=== PATIENT | female | born 1935 | race Caucasian/White ===

== ENCOUNTER 2017-03-01 14:44 | Inpatient (IN) | payer OTHER ==
[~2017-03-01] VITALS: Ht 154.9 cm; Wt 94.0 kg
[2017-03-01 15:58] LABS: Basophils # (auto) 0.1 uL; Basophils % (auto) 0.2 % (0.0-2.0); Eosinophils # (auto) 0 uL; Hematocrit 52.1 % (36.0-46.0); Hemoglobin 16.2 g/dL (12.2-16.2); Lymphocytes # (auto) 1.2 uL; Lymphocytes % (auto) 4.9 % (10.0-50.0); Mean Corpuscular Hemoglobin 27.5 pg (28.0-32.0); Mean Corpuscular Hgb Conc. 31.1 g/dL (32.0-36.0); Mean Corpuscular Volume 88.4 fL (80.0-100.0); Monocytes % (auto) 8.2 % (0.0-12.0); Neutrophils % (auto) 86.7 % (37.0-80.0); Nucleated Red Blood Cells % 0.2 %; Platelet Count (auto) 327 10^3/uL (140-450); Red Cell Distribution Width 15.8 % (11.8-14.3); White Blood Cell 24.2 10^3/uL (4.4-10.8)
[2017-03-01 16:13] LABS: Albumin 3.9 g/dL (3.4-5.0); Alkaline Phosphatase 145 U/L (45-117); Anion Gap 15 (5-15); Aspartate Aminotransferase 151 U/L (15-37); BUN/Creatinine Ratio 23.9; Blood Urea Nitrogen 28 mg/dL (7-18); Calcium 9.6 mg/dL (8.5-10.1); Carbon Dioxide 21 mmol/L (21-32); Chloride 106 mmol/L (98-107); GFR African American 57 mL/min; GFR Non-African American 47 mL/min; Glucose 136 mg/dL (74-106); Potassium 3.6 mmol/L (3.5-5.1); Sodium 142 mmol/L (136-145); Total Protein 8.7 g/dL (6.4-8.2)
[2017-03-01 16:34] LABS: REFLEX LACTIC ACID YES OR NO YES
[2017-03-01] MEDS ORDERED: VANCOMYCIN 1GM/250ML 250 ML IV ONE (16:45)
[2017-03-01] MEDS ORDERED: cefTRIAXone 1GM/10ml IVPUSH 10 ML IV ONE (16:45)
[2017-03-01] MEDS ORDERED: ASPirin 325 MG TAB PO ONE (16:45)
[2017-03-01 17:03] LABS: Base Excess -4.6 mmol/L (-2.0-2.0); Blood 02Sat 91.9 % (96-100); Blood COHb 0.6 % (0.5-1.5); Blood MetHb 0.2 % (0.0-1.5); HCO3 18.2 mmol/L (22-26.0); MODE ROOM AIR; O2Hb 91.2 % (94.0-97.0); PCO2 28.5 mmHg (35.0-45.0); PCO2(T) 28.5 mmHg (35.0-45.0); PO2 67.2 mmHg (80.0-100.0); PO2(T) 67.2 mmHg (80.0-100.0); Sample Type Arterial; pH 7.423 (7.350-7.450)
[2017-03-01] MEDS ORDERED: SODIUM CHLORIDE 0.9% 1,000 ML IV SCH (17:11)
[2017-03-01] MEDS ORDERED: diphenhdrAMINE HCL 50 MG/1 ML VL IV ONE (17:15)
[2017-03-01] MEDS ORDERED: LOSA25TA9 PO (20:25)
[2017-03-01] MEDS ORDERED: ATE50T PO (20:25)
[2017-03-01] MEDS ORDERED: LEVO75TA6 PO (20:25)
[2017-03-01] MEDS ORDERED: CYCL7.5T15 PO (20:25)
[2017-03-01] MEDS ORDERED: GABA-497 PO (20:25)
[2017-03-01] MEDS ORDERED: KETO0.5S31 LEFTEYE (20:25)
[2017-03-01] MEDS ORDERED: ISOS30TA4 PO (20:25)
[2017-03-01] MEDS ORDERED: AML5T PO (20:25)
[2017-03-01] MEDS ORDERED: ATOR10TA52 PO (20:25)
[2017-03-01] MEDS ORDERED: FURO20TA PO (20:25)
[2017-03-01] MEDS ORDERED: CLOP75TA41 PO (20:25)
[2017-03-01] MEDS ORDERED: GLIM2TAB33 PO (20:25)
[2017-03-01] MEDS ORDERED: NITROGLYCERIN 0.4 MG SL TAB SL PRN (20:45)
[2017-03-01] MEDS ORDERED: MORPHINE SULF INJ 2 MG/ML SYRINGE 1ML IV PRN ×2 (20:45→21:30)
[2017-03-01 21:29] LABS: Urine Bilirubin Negative (Negative); Urine Blood 3+ /uL (Negative); Urine Color Yellow (Yellow); Urine Glucose TRACE mg/dL (Normal); Urine Ketone 1+ (Negative); Urine Mucus FEW (None Seen); Urine Nitrite Negative (Negative); Urine RBC <1 /hpf (0 - 4); Urine Urobilinogen Normal (Negative)
[2017-03-01] MEDS ORDERED: HYDROcodone-ACET 5/325MG TAB PO PRN (21:30)
[2017-03-01] MEDS ORDERED: TEMAZEPAM 15 MG CAP PO PRN (21:30)
[2017-03-01] MEDS ORDERED: ONDANSETRON HCL 4 MG/2 ML VIAL IV PRN (21:30)
[2017-03-01] MEDS ORDERED: ATORVASTATIN 20 MG TAB PO SCH (22:00)
[2017-03-01] MEDS: METOPROLOL TARTRATE 25 MG TAB PO SCH (22:00)
[2017-03-01] MEDS: ENOXAPARIN SOD 120 MG/0.8 ML SYRINGE SC SCH (22:21)
[2017-03-02 00:58] LABS: BUN/Creatinine Ratio 22.4; Calcium 8.9 mg/dL (8.5-10.1); Potassium 3.5 mmol/L (3.5-5.1)
[2017-03-02] MEDS ORDERED: VANCOMYCIN PER PHARMACY 0 MG IV SCH (03:00)
[2017-03-02] MEDS ORDERED: SODIUM CHLORIDE 0.9% 1,000 ML IV ONE (03:45)
[2017-03-02] MEDS ORDERED: diphenhdrAMINE HCL 50 MG/1 ML VL IV ONE ×2 (06:00→17:15)
[2017-03-02 06:25] LABS: Basophils # (auto) 0.2 uL; Basophils % (auto) 1.2 % (0.0-2.0); Eosinophils # (auto) 0.1 uL; Eosinophils % (auto) 0.9 % (0.0-7.0); Hematocrit 40.6 % (36.0-46.0); Hemoglobin 13.3 g/dL (12.2-16.2); Lymphocytes # (auto) 1.7 uL; Lymphocytes % (auto) 12.4 % (10.0-50.0); Mean Corpuscular Hemoglobin 27.5 pg (28.0-32.0); Mean Corpuscular Hgb Conc. 32.8 g/dL (32.0-36.0); Mean Corpuscular Volume 83.9 fL (80.0-100.0); Mean Platelet Volume 8.3 fL (6.9-10.8); Monocytes # (auto) 1.3 uL; Monocytes % (auto) 9.8 % (0.0-12.0); Neutrophils # (auto) 10.1 uL; Neutrophils % (auto) 75.7 % (37.0-80.0); Platelet Count (auto) 308 10^3/uL (140-450); Red Cell Distribution Width 14.9 % (11.8-14.3); White Blood Cell 13.4 10^3/uL (4.4-10.8)
[2017-03-02] MEDS ORDERED: VANCOMYCIN 1GM/250ML 250 ML IV SCH (08:00)
[2017-03-02] MEDS: PANTOPRAZOLE 40 MG TAB PO SCH (09:37)
[2017-03-02] MEDS: METOPROLOL TARTRATE 25 MG TAB PO SCH ×2 (09:37→22:19)
[2017-03-02] MEDS: ENOXAPARIN SOD 120 MG/0.8 ML SYRINGE SC SCH (09:37)
[2017-03-02] MEDS ORDERED: NTG 0.1MG/HR TOPICAL PATCH TD SCH (10:00)
[2017-03-02] MEDS ORDERED: LISINOPRIL 5 MG TAB PO SCH (10:00)
[2017-03-02] MEDS: ASPirin-EC 81 mg tab PO SCH (10:13)
[2017-03-02 10:40] LABS: INR 1.06 (0.9-1.15); Partial Thromboplastin Time 33.6 sec (22.64-33.71); Prothrombin Time 11.6 sec (9.37-12.3)
[2017-03-02] MEDS ORDERED: POTASSIUM CHL 20 Meq TABLET PO ONE (13:30)
[2017-03-02] MEDS ORDERED: SOD CHL 0.45% 1,000 ML IV SCH (13:30)
[2017-03-02] MEDS ORDERED: cloNIDine HCL 0.1 MG TAB PO PRN (13:30)
[2017-03-02] MEDS: GABAPENTIN 300 MG CAP PO SCH ×2 (14:05→22:19)
[2017-03-02] MEDS: SOD CHL 0.45% 1,000 ML IV SCH (14:19)
[2017-03-02] MEDS: LEVOTHYROXINE SODIUM 25 MCG TAB PO SCH (14:44)
[2017-03-02] MEDS: CLOPIDOGREL BISULFATE 75 MG TAB PO SCH (14:44)
[2017-03-02] MEDS: ISOSORBIDE MONONITRATE 60 MG TAB PO SCH (14:44)
[2017-03-02] MEDS: amLODIPine BESYLATE 5 MG TAB PO SCH (14:45)
[2017-03-02] MEDS ORDERED: SODIUM BICARBONATE 50ML VIAL 150 ML in D5W 5% 1,000 ML IV SCH (17:15)
[2017-03-02] MEDS: prednisoLONE ACETATE 1% OPTH SUSP 5ML LEFTEYE SCH ×2 (17:37→23:30)
[2017-03-02] MEDS: ACETAMINOPHEN 500 MG TAB PO PRN (17:46)
[2017-03-02] MEDS ORDERED: OFLOXACIN 0.3% LEFTEYE SCH (18:00)
[2017-03-02] MEDS ORDERED: KETOROLAC OPTH LEFTEYE SCH (18:00)
[2017-03-02] MEDS ORDERED: OPTH LEFTEYE SCH (18:00)
[2017-03-02] MEDS: ATORVASTATIN 20 MG TAB PO SCH (22:18)
[2017-03-02] MEDS: OFLOXACIN LEFTEYE SCH (23:30)
[2017-03-03] MEDS: SOD CHL 0.45% 1,000 ML IV SCH ×3 (02:48→22:35)
[2017-03-03 05:45] LABS: Basophils # (auto) 0.1 uL; Basophils % (auto) 0.8 % (0.0-2.0); Eosinophils # (auto) 0.3 uL; Eosinophils % (auto) 2.8 % (0.0-7.0); Hematocrit 37.1 % (36.0-46.0); Hemoglobin 12.1 g/dL (12.2-16.2); Lymphocytes # (auto) 1.6 uL; Lymphocytes % (auto) 14.4 % (10.0-50.0); Mean Corpuscular Hemoglobin 27.6 pg (28.0-32.0); Mean Corpuscular Hgb Conc. 32.5 g/dL (32.0-36.0); Mean Corpuscular Volume 84.8 fL (80.0-100.0); Mean Platelet Volume 8.2 fL (6.9-10.8); Monocytes # (auto) 1.1 uL; Monocytes % (auto) 10.2 % (0.0-12.0); Neutrophils # (auto) 7.9 uL; Neutrophils % (auto) 71.8 % (37.0-80.0); Platelet Count (auto) 288 10^3/uL (140-450); Red Cell Distribution Width 15.3 % (11.8-14.3); White Blood Cell 10.9 10^3/uL (4.4-10.8)
[2017-03-03] MEDS: OFLOXACIN LEFTEYE SCH ×4 (05:49→23:32)
[2017-03-03] MEDS: prednisoLONE ACETATE 1% OPTH SUSP 5ML LEFTEYE SCH ×4 (05:49→23:33)
[2017-03-03] MEDS: GABAPENTIN 300 MG CAP PO SCH ×3 (05:53→22:21)
[2017-03-03] MEDS: LEVOTHYROXINE SODIUM 25 MCG TAB PO SCH (05:53)
[2017-03-03 06:05] LABS: INR 0.98 (0.9-1.15); Prothrombin Time 10.7 sec (9.37-12.3)
[2017-03-03 06:26] LABS: Albumin 2.7 g/dL (3.4-5.0); Calcium 8.1 mg/dL (8.5-10.1); Magnesium 2.1 mg/dL (1.6-2.6); Potassium 3.8 mmol/L (3.5-5.1)
[2017-03-03 06:38] LABS: BUN/Creatinine Ratio 26.5; Bilirubin, Total 0.5 mg/dL (0.2-1.0)
[2017-03-03] MEDS ORDERED: diphenhdrAMINE HCL 50 MG/1 ML VL IV ONE (09:00)
[2017-03-03] MEDS: ENOXAPARIN SOD 120 MG/0.8 ML SYRINGE SC SCH (09:56)
[2017-03-03] MEDS: GLIMEPIRIDE 2 MG TAB PO SCH (09:59)
[2017-03-03] MEDS ORDERED: PATIENTS OWN MEDICATION (Atorvastatin Calcium 1 TAB) PO SCH ×2 (10:00)
[2017-03-03] MEDS ORDERED: PATIENTS OWN MEDICATION (Levothyroxine Sodium 1 TAB) PO SCH ×2 (10:00)
[2017-03-03] MEDS ORDERED: PATIENTS OWN MEDICATION (Isosorbide Mononitrate (Isosorbide Mononitrate Er) 1 TAB) PO SCH ×2 (10:00)
[2017-03-03] MEDS: ASPirin-EC 81 mg tab PO SCH (10:15)
[2017-03-03] MEDS: KETOROLAC TROMETHAMINE LEFTEYE SCH (10:15)
[2017-03-03] MEDS: ISOSORBIDE MONONITRATE 60 MG TAB PO SCH (10:15)
[2017-03-03] MEDS: PANTOPRAZOLE 40 MG TAB PO SCH (10:16)
[2017-03-03] MEDS: METOPROLOL TARTRATE 25 MG TAB PO SCH ×2 (10:16→22:25)
[2017-03-03] MEDS: CLOPIDOGREL BISULFATE 75 MG TAB PO SCH (10:16)
[2017-03-03] MEDS: amLODIPine BESYLATE 5 MG TAB PO SCH (10:16)
[2017-03-03 16:00] VITALS: BP 116/48
[2017-03-03 16:14] VITALS: BP 104/43
[2017-03-03 20:00] VITALS: BP 125/59
[2017-03-03 22:00] VITALS: BP 117/45
[2017-03-03] MEDS: ATORVASTATIN 20 MG TAB PO SCH (22:25)
[2017-03-04] VITALS (8 sets, daily range): BP systolic 95–141; BP diastolic 36–141
[2017-03-04] MEDS: GABAPENTIN 300 MG CAP PO SCH ×3 (06:25→21:36)
[2017-03-04] MEDS: prednisoLONE ACETATE 1% OPTH SUSP 5ML LEFTEYE SCH ×3 (06:26→18:00)
[2017-03-04] MEDS: OFLOXACIN LEFTEYE SCH ×3 (06:27→18:00)
[2017-03-04] MEDS: LEVOTHYROXINE SODIUM 25 MCG TAB PO SCH (06:30)
[2017-03-04 07:29] LABS: BUN/Creatinine Ratio 33.8; Calcium 8.1 mg/dL (8.5-10.1); Potassium 4.2 mmol/L (3.5-5.1)
[2017-03-04] MEDS: amLODIPine BESYLATE 5 MG TAB PO SCH (10:41)
[2017-03-04] MEDS: CLOPIDOGREL BISULFATE 75 MG TAB PO SCH (10:41)
[2017-03-04] MEDS: ENOXAPARIN SOD 120 MG/0.8 ML SYRINGE SC SCH (10:41)
[2017-03-04] MEDS: ASPirin-EC 81 mg tab PO SCH (10:41)
[2017-03-04] MEDS: PANTOPRAZOLE 40 MG TAB PO SCH (10:42)
[2017-03-04] MEDS: METOPROLOL TARTRATE 25 MG TAB PO SCH ×2 (10:42→21:37)
[2017-03-04] MEDS: SOD CHL 0.45% 1,000 ML IV SCH ×2 (10:43→18:18)
[2017-03-04] MEDS: ISOSORBIDE MONONITRATE 60 MG TAB PO SCH (10:43)
[2017-03-04] MEDS: KETOROLAC TROMETHAMINE LEFTEYE SCH (10:44)
[2017-03-04] MEDS: ACETAMINOPHEN 500 MG TAB PO PRN (11:15)
[2017-03-04] MEDS: GLIMEPIRIDE 2 MG TAB PO SCH (12:12)
[2017-03-04 13:27] LABS: INR 0.96 (0.9-1.15); Partial Thromboplastin Time 30.9 sec (22.64-33.71); Prothrombin Time 10.5 sec (9.37-12.3)
[2017-03-04] MEDS ORDERED: ONDANSETRON HCL 4 MG/2 ML VIAL ONE (14:14)
[2017-03-04] MEDS ORDERED: KETOROLAC TROMETH 30 MG/ML 1ML VIAL ONE (14:14)
[2017-03-04] MEDS ORDERED: IOHEXOL 350 MG/ML 100ML IJ ONE (14:33)
[2017-03-04] MEDS ORDERED: LIDOCAINE 2%HCL (LOCAL ANESTH.) INJ 20ML MDV ONE (14:33)
[2017-03-04] MEDS: ATORVASTATIN 20 MG TAB PO SCH (21:36)
[2017-03-05] MEDS: SOD CHL 0.45% 1,000 ML IV SCH ×2 (00:13→15:00)
[2017-03-05] MEDS: prednisoLONE ACETATE 1% OPTH SUSP 5ML LEFTEYE SCH ×3 (00:13→11:57)
[2017-03-05] MEDS: OFLOXACIN LEFTEYE SCH ×3 (00:14→11:58)
[2017-03-05 05:00] VITALS: BP 135/60
[2017-03-05] MEDS: GABAPENTIN 300 MG CAP PO SCH ×2 (06:00→14:00)
[2017-03-05] MEDS: LEVOTHYROXINE SODIUM 25 MCG TAB PO SCH (06:13)
[2017-03-05 07:21] LABS: Calcium 8.1 mg/dL (8.5-10.1); Potassium 4.1 mmol/L (3.5-5.1)
[2017-03-05 07:22] LABS: BUN/Creatinine Ratio 29.1
[2017-03-05] MEDS ORDERED: ANGIOMAX 250 MG VIAL IV ONE (07:58)
[2017-03-05] MEDS ORDERED: fentaNYL CITRATE 100 MCG/2 ML VL ONE (07:58)
[2017-03-05] MEDS ORDERED: SODIUM CHL 0.9% 100 ML ONE (07:59)
[2017-03-05] MEDS ORDERED: MIDAZOLAM HCL 1MG/1ML-2 ML VIAL ONE (07:59)
[2017-03-05] MEDS ORDERED: IODIXANOL 320MG/ML 100ML BTL IV ONE (09:01)
[2017-03-05] MEDS: METOPROLOL TARTRATE 25 MG TAB PO SCH (10:00)
[2017-03-05] MEDS: GLIMEPIRIDE 2 MG TAB PO SCH (10:00)
[2017-03-05] MEDS: ENOXAPARIN SOD 120 MG/0.8 ML SYRINGE SC SCH (11:31)
[2017-03-05] MEDS: ISOSORBIDE MONONITRATE 60 MG TAB PO SCH (11:32)
[2017-03-05] MEDS: amLODIPine BESYLATE 5 MG TAB PO SCH (11:32)
[2017-03-05] MEDS: PANTOPRAZOLE 40 MG TAB PO SCH (11:32)
[2017-03-05] MEDS: CLOPIDOGREL BISULFATE 75 MG TAB PO SCH (11:33)
[2017-03-05] MEDS: KETOROLAC TROMETHAMINE LEFTEYE SCH (11:34)
[2017-03-05] MEDS: ASPirin-EC 81 mg tab PO SCH (11:36)
[2017-03-05 12:00] VITALS: BP 138/44
[2017-03-05 13:19] VITALS: BP 138/44
[2017-03-05 13:39] VITALS: BP 138/44
[2017-03-05 14:20] VITALS: BP 138/44
== END 2017-03-05 16:15 | DRG 871 ==
LOC: ER 14:44 → TELE 14:45 → TELE-WESTW 03-03 14:53
PROVIDERS: ADMIT Nurse Practitioner Family; ATTEND Family Medicine
PROC: 4A023N8 Measurement of Cardiac Sampling and Pressure, Bilateral, Percutaneous Approach (ICD-10-PCS; principal; 2017-03-05)
PROC: B2111ZZ Fluoroscopy of Multiple Coronary Arteries using Low Osmolar Contrast (ICD-10-PCS; 2017-03-05)
PROC: B2161ZZ Fluoroscopy of Right and Left Heart using Low Osmolar Contrast (ICD-10-PCS; 2017-03-05)
PROC: B240ZZ3 Ultrasonography of Single Coronary Artery, Intravascular (ICD-10-PCS; 2017-03-05)
DX: A41.9 Sepsis, unspecified organism (principal); I21.4 Non-ST elevation (NSTEMI) myocardial infarction; G93.41 Metabolic encephalopathy; N17.9 Acute kidney failure, unspecified; E11.22 Type 2 diabetes mellitus with diabetic chronic kidney disease; N18.2 Chronic kidney disease, stage 2 (mild); I12.9 Hypertensive chronic kidney disease with stage 1 through stage 4 chronic kidney disease, or unspecified chronic kidney disease; E03.9 Hypothyroidism, unspecified; E11.21 Type 2 diabetes mellitus with diabetic nephropathy; E11.42 Type 2 diabetes mellitus with diabetic polyneuropathy; E78.5 Hyperlipidemia, unspecified; Z60.2 Problems related to living alone; I25.10 Atherosclerotic heart disease of native coronary artery without angina pectoris; I27.20 Pulmonary hypertension, unspecified; I35.0 Nonrheumatic aortic (valve) stenosis; J44.9 Chronic obstructive pulmonary disease, unspecified; Z79.899 Other long term (current) drug therapy; Z86.73 Personal history of transient ischemic attack (TIA), and cerebral infarction without residual deficits; Z79.84 Long term (current) use of oral hypoglycemic drugs; Z88.0 Allergy status to penicillin; Z88.2 Allergy status to sulfonamides
CPT/HCPCS: 36415; 36600; 51702; 70450; 71010; 73030; 73090; 73562; 74176; 80048; 80053; 80320; 81001; 82607; 82805; 82962; 83036; 83605; 83735; 84484; 85025; 85610; 85730; 87040; 87086; 92978; 93005; 93306; 93460; 93566; 96365; 96375; 99152; 99153; C1887; J1885; J2250; J2405; J7042; Q9967

== ENCOUNTER 2017-07-23 19:45 | Emergency (ER) | payer MEDICARE, OTHER ==
[~2017-07-23] VITALS: Ht 160 cm; Wt 95.3 kg
[~2017-07-23 19:45] MED LIST: AML5T PO; ATE50T PO; ATOR10TA52 PO; CLOP75TA41 PO; CYCL7.5T15 PO; FURO20TA PO; GABA300C10 PO; GLIM2TAB33 PO; ISOS30TA4 PO; KETO0.5S31 LEFTEYE; LEVO75TA6 PO; LOSA25TA9 PO
[2017-07-23 21:19] LABS: Hemoglobin 12.3 g/dL (12.2-16.2); Monocytes # (auto) 0.9 uL; Monocytes % (auto) 7.4 % (0.0-12.0)
[2017-07-23 21:20] LABS: Basophils # (auto) 0 uL; Basophils % (auto) 0.2 % (0.0-2.0); Eosinophils # (auto) 0.4 uL; Eosinophils % (auto) 3.1 % (0.0-7.0); Hematocrit 38.4 % (36.0-46.0); Lymphocytes # (auto) 1.5 uL; Mean Corpuscular Hemoglobin 26.8 pg (28.0-32.0); Mean Corpuscular Hgb Conc. 32.1 g/dL (32.0-36.0); Mean Corpuscular Volume 83.5 fL (80.0-100.0); Neutrophils # (auto) 9.1 uL; Neutrophils % (auto) 76.3 % (37.0-80.0); Platelet Count (auto) 323 10^3/uL (140-450); Red Cell Distribution Width 16.1 % (11.8-14.3); White Blood Cell 11.9 10^3/uL (4.4-10.8)
[2017-07-23 21:39] LABS: Albumin 3.5 g/dL (3.4-5.0); Calcium 8.9 mg/dL (8.5-10.1); Potassium 4.3 mmol/L (3.5-5.1)
[2017-07-23 21:43] LABS: Bilirubin, Total 0.3 mg/dL (0.2-1.0); Total Protein 7.6 g/dL (6.4-8.2)
[2017-07-24] MEDS ORDERED: HYDROcodone-ACET 10/325MG TAB PO ONE (01:45)
[2017-07-24] MEDS ORDERED: cefTRIAXone 1GM/10ml IVPUSH 10 ML IV ONE (01:45)
[2017-07-24] MEDS ORDERED: FUROSEMIDE 20 MG/2 ML VIAL IV ONE (03:00)
[2017-07-24 05:00] VITALS: BP 148/62
== END 2017-07-24 05:55 | disposition home or self-care (01) ==
LOC: ER 19:45 → EDBD 19:45 → ER 07-24 05:55
DX: S01.81XA Laceration without foreign body of other part of head, initial encounter (principal); S39.012A Strain of muscle, fascia and tendon of lower back, initial encounter; E11.9 Type 2 diabetes mellitus without complications; J44.9 Chronic obstructive pulmonary disease, unspecified; R42 Dizziness and giddiness; R53.1 Weakness; I11.0 Hypertensive heart disease with heart failure; I50.9 Heart failure, unspecified; Z86.73 Personal history of transient ischemic attack (TIA), and cerebral infarction without residual deficits; Z88.0 Allergy status to penicillin; Z88.2 Allergy status to sulfonamides; W20.8XXA Other cause of strike by thrown, projected or falling object, initial encounter; Y93.89 Activity, other specified; Y92.098 Other place in other non-institutional residence as the place of occurrence of the external cause; Y99.8 Other external cause status
CPT/HCPCS: 12011; 36415; 70450; 71250; 72125; 72131; 73030; 73600; 80053; 83880; 84484; 85025; 93005; 96374; 96375; 99285; J1940

== ENCOUNTER 2019-08-31 16:53 | Inpatient (IN) | payer MEDICARE, MEDICAID ==
[2019-08-31] VITALS (10 sets, daily range): BP systolic 121–166; BP diastolic 20–44
[~2019-08-31] VITALS: Ht 152.4 cm; Wt 89.3 kg
[~2019-08-31 16:53] MED LIST changes: +FURO1TAB33 PO; -FURO20TA PO; +LOSA25TA38 PO; -LOSA25TA9 PO
[2019-08-31] MEDS ORDERED: NITROGLYCERIN 50MG/250ML 250 ML IV ONE (17:14)
[2019-08-31] MEDS ORDERED: ASPirin 81 mg TAB PO ONE (17:15)
[2019-08-31] MEDS ORDERED: PROMETHAZINE HCL 25 MG/ML 1ML IV ONE (17:15)
[2019-08-31] MEDS ORDERED: HYDROmorphone HCL 2 MG/ML VL IV ONE (17:15)
[2019-08-31 17:20] LABS: Basophils # (auto) 0.1 10 ^3/uL (0-0.2); Basophils % (auto) 1.1 % (0.0-2.0); Eosinophils # (auto) 0.2 10 ^3/uL (0-0.8); Eosinophils % (auto) 1.4 % (0.0-7.0); Hematocrit 46.9 % (36.0-46.0); Hemoglobin 15.1 g/dL (12.2-16.2); Lymphocytes # (auto) 2.1 10 ^3/uL (0.4-5.4); Lymphocytes % (auto) 16.6 % (10.0-50.0); Mean Corpuscular Hemoglobin 27.2 pg (28.0-32.0); Mean Corpuscular Hgb Conc. 32.1 g/dL (32.0-36.0); Mean Corpuscular Volume 84.6 fL (80.0-100.0); Monocytes # (auto) 1.1 10 ^3/uL (0-1.3); Monocytes % (auto) 8.6 % (0.0-12.0); Neutrophils # (auto) 9.2 10 ^3/uL (1.6-8.6); Neutrophils % (auto) 72.3 % (37.0-80.0); Platelet Count (auto) 308 10^3/uL (140-450); Red Blood Cells 5.54 10^6/uL (4.0-5.20); Red Cell Distribution Width 14.6 % (11.8-14.3); White Blood Cell 12.8 10^3/uL (4.4-10.8)
[2019-08-31 17:37] LABS: Albumin 3.7 g/dL (3.4-5.0); Calcium 9.7 mg/dL (8.5-10.1); Potassium 4.5 mmol/L (3.5-5.1)
[2019-08-31 17:44] LABS: BUN/Creatinine Ratio 29.4; Bilirubin, Total 0.5 mg/dL (0.2-1.0); Total Protein 8.5 g/dL (6.4-8.2)
[2019-08-31] MEDS ORDERED: HEPARIN SODIUM (PORCINE) 5000 UNITS/ML 1ML VIAL ONE ×2 (18:08→18:32)
[2019-08-31] MEDS ORDERED: HEPARIN 1,000 UNITS/ml 1ML VIAL IV ONE (18:15)
[2019-08-31] MEDS ORDERED: ATROPINE SULF 1 MG/10ml SYR ONE (18:31)
[2019-08-31] MEDS ORDERED: fentaNYL CITRATE 100 MCG/2 ML VL ONE (18:32)
[2019-08-31] MEDS ORDERED: VERAPAMIL 2.5MG/ML INJ 2ML VIAL IV ONE ×2 (18:32→19:21)
[2019-08-31] MEDS ORDERED: LIDOCAINE 2%HCL (LOCAL ANESTH.) INJ 20ML MDV ONE (18:32)
[2019-08-31] MEDS ORDERED: IODIXANOL 320MG/ML 100ML BTL IV ONE (18:32)
[2019-08-31] MEDS ORDERED: MIDAZOLAM HCL 1MG/1ML-2 ML VIAL ONE (18:32)
[2019-08-31] MEDS ORDERED: SODIUM CHL 0.9% 50 ML ONE (18:33)
[2019-08-31] MEDS ORDERED: ANGIOMAX 250 MG VIAL IV ONE (18:33)
[2019-08-31] MEDS ORDERED: DOPamine 1600MCG/ML D5W 0 ML IV ONE (18:44)
[2019-08-31] MEDS ORDERED: EPINEPHrine HCL 1 MG/10 ML SYRG ONE (18:44)
[2019-08-31] MEDS ORDERED: NOREPINEPHRINE 8 MG/250ML KIT 0 ML IV ONE ×2 (18:45→20:05)
[2019-08-31] MEDS ORDERED: PHENYLEPHRINE IV 0 ML IV ONE (19:31)
[2019-08-31] MEDS ORDERED: PHENYLEPHRINE IV 250 ML IV ONE (20:07)
[2019-08-31] MEDS ORDERED: ZOLPIDEM TARTRATE 5 MG TAB PO PRN (20:15)
[2019-08-31] MEDS ORDERED: NITROGLYCERIN 0.4 MG SL TAB SL PRN (20:15)
[2019-08-31] MEDS ORDERED: ONDANSETRON HCL 4 MG/2 ML VIAL IV PRN (20:15)
--- NOTE | 2019-08-31 21:00 | NUR ---
ICU admit from Private Duty Lpn: TEDDY ARELLANO admitted to ICU after SBAR received. Patient oriented to WALDO BRIAN RN primary RN, unit, room, bed, and unit policies regarding patient care and visiting hours. Patient now on bedside monitoring,and reading on arrival to unit is SR. Patient placed on bedside oxygen, weighed by bedscale and encouraged to call if they need something. All questions and concerns addressed, patient verbalized understanding.
--- NOTE | 2019-08-31 21:45 | NUR ---
Bed ravi: Patient was placed on the bedpan d/t patient having urge to urinate. Patient voided with no complications.
[2019-08-31] MEDS: METOPROLOL TARTRATE 25 MG TAB PO SCH (21:57)
[2019-08-31] MEDS ORDERED: cloNIDine HCL 0.1 MG TAB PO PRN (22:00)
[2019-08-31] MEDS ORDERED: ATORVASTATIN 20 MG TAB PO SCH (22:00)
--- NOTE | 2019-08-31 22:00 | NUR ---
Vasc Band: Deflated 2mL's, no bleeding observed.
--- NOTE | 2019-08-31 22:15 | NUR ---
Vasc Band: Deflated 2mL's, no bleeding observed.
[2019-08-31] MEDS: ENOXAPARIN SOD 40 MG/0.4 ML SYRINGE SC SCH (22:18)
--- NOTE | 2019-08-31 22:30 | NUR ---
Vasc Band: Deflated 2mL's, no bleeding observed.
--- NOTE | 2019-08-31 22:45 | NUR ---
Vasc Band: Deflated 2mL's, no bleeding observed.
--- NOTE | 2019-08-31 23:00 | NUR ---
Vasc Band: Deflated 1mL, no bleeding observed.
--- NOTE | 2019-08-31 23:00 | NUR ---
TR BAND removed. Will continue to monitor for bleeding.
--- NOTE | 2019-08-31 23:56 | NUR ---
Dr. Palomares was paged d/t patient having a critical Troponin of 11.1. Patient recently under went a [facility] with Dr. Palomares earlier. Dr. Palomares returned page immediately and no new orders were received at this time. also made aware of patient currently being Bradycardic in the mid 40's. Per , RN is to continue to monitor.
[2019-09-01] VITALS (37 sets, daily range): BP systolic 86–187; BP diastolic 27–56
--- NOTE | 2019-09-01 03:30 | NUR ---
RN noted patient to have an abdominal abrasion under her skin fold, opti foam was placed over abrasion.
--- NOTE | 2019-09-01 03:52 | NUR ---
Bed ravi: Patient was placed on the bedpan d/t patient having urge to urinate. Patient voided with no complications.
[2019-09-01 06:02] LABS: Basophils # (auto) 0 10 ^3/uL (0-0.2); Basophils % (auto) 0.3 % (0.0-2.0); Eosinophils # (auto) 0.2 10 ^3/uL (0-0.8); Eosinophils % (auto) 1.7 % (0.0-7.0); Hematocrit 37.9 % (36.0-46.0); Hemoglobin 12.8 g/dL (12.2-16.2); Lymphocytes # (auto) 1.9 10 ^3/uL (0.4-5.4); Lymphocytes % (auto) 18.1 % (10.0-50.0); Mean Corpuscular Hemoglobin 28.5 pg (28.0-32.0); Mean Corpuscular Hgb Conc. 33.7 g/dL (32.0-36.0); Mean Corpuscular Volume 84.7 fL (80.0-100.0); Monocytes # (auto) 0.9 10 ^3/uL (0-1.3); Monocytes % (auto) 8.7 % (0.0-12.0); Neutrophils # (auto) 7.5 10 ^3/uL (1.6-8.6); Neutrophils % (auto) 71.2 % (37.0-80.0); Nucleated Red Blood Cells % 0.1 %; Platelet Count (auto) 256 10^3/uL (140-450); Red Blood Cells 4.48 10^6/uL (4.0-5.20); Red Cell Distribution Width 14.8 % (11.8-14.3); White Blood Cell 10.5 10^3/uL (4.4-10.8)
[2019-09-01 06:19] LABS: Calcium 8.5 mg/dL (8.5-10.1); Potassium 4.3 mmol/L (3.5-5.1)
[2019-09-01 06:26] LABS: BUN/Creatinine Ratio 32.7; Bilirubin, Total 0.6 mg/dL (0.2-1.0); Total Protein 6.8 g/dL (6.4-8.2)
--- NOTE | 2019-09-01 07:35 | NUR ---
INITIAL CONTACT Report received from Augusto LAZO, care assumed. Patient observed resting in bed. Patient denies chest pain or shortness of breath. Patient on 2 L nasal cannula, oxygen saturation 100% with respirations even, and unlabored. Pulses palpable, blood pressure trending 160-180's. Heart rate 50-60 sinus. Patient denies dizziness. Afebrile. See skin/wound assessment. SCD's on bilateral lower extremities. Right IJ TLC, dressing CDI. Bed locked in lowest position, alarms in place, and call light within reach. Patient instructed to call for assistance. Patient verbalized understanding. Will continue to monitor.
--- NOTE | 2019-09-01 08:44 | NUR ---
PAGED paged regarding elevated blood pressure. Awaiting call back.
--- NOTE | 2019-09-01 09:07 | NUR ---
MD RETURNED PAGE aware of elevated blood pressure with bradycardia. Notified MD of home medications. Orders received.
[2019-09-01] MEDS ORDERED: ENALAPRILAT 1.25 MG/ML-1ML VIAL IV ONE (09:15)
--- NOTE | 2019-09-01 09:30 | NUR ---
ACTIVITY Patient ambulated with standby assistance to bedside commode to void. Patient then ambulated to chair for breakfast. No distress noted. Call light within reach. Patient instructed to call for assistance.
[2019-09-01] MEDS: ENOXAPARIN SOD 40 MG/0.4 ML SYRINGE SC SCH (09:37)
[2019-09-01] MEDS: METOPROLOL TARTRATE 25 MG TAB PO SCH (09:37)
--- NOTE | 2019-09-01 09:50 | NUR ---
URINALYSIS Urine sent to lab.
--- NOTE | 2019-09-01 09:54 | NUR ---
BUNCH BREAKER MACHINE OPERATOR VISIT Burt BUNCH BREAKER MACHINE OPERATOR at bedside speaking with patient. BUNCH BREAKER MACHINE OPERATOR reviewing medical chart.
[2019-09-01] MEDS ORDERED: PANTOPRAZOLE 40 MG/10 ML VIAL INJ IV SCH (10:00)
[2019-09-01] MEDS ORDERED: FUROSEMIDE 40 MG/4 ML VIAL IV ONE (10:00)
[2019-09-01] MEDS ORDERED: ASPirin-EC 81 mg tab PO SCH (10:00)
[2019-09-01] MEDS ORDERED: amLODIPine BESYLATE 5 MG TAB PO SCH (10:00)
--- NOTE | 2019-09-01 10:18 | NUR ---
FAMILY Spoke with patient son regarding plan of care and status. Password provided.
[2019-09-01 10:23] LABS: Urine WBC None Seen /hpf (0 - 5)
[2019-09-01 10:36] LABS: Urine Bacteria NONE SEEN /hpf (None Seen); Urine Blood Negative /uL (Negative); Urine Specific Gravity 1.031 (1.001-1.035)
--- NOTE | 2019-09-01 11:37 | NUR ---
ACTIVITY Patient ambulated back to bed with standby assistance. Patient repositioned with head elevated greater than 30 degrees. Call light within reach. Will continue to monitor.
[2019-09-01] MEDS ORDERED: POTASSIUM CHL 20 Meq TABLET PO ONE (12:30)
--- NOTE | 2019-09-01 12:31 | NUR ---
CARDIOLOGY Spoke with Ariadne FLORIAN, ECHO 2D ordered. Once echo is complete, results are read. Then patient may be discharged home.
[2019-09-01] MEDS ORDERED: CLOPIDOGREL BISULFATE 75 MG TAB PO ONE (12:45)
--- NOTE | 2019-09-01 13:19 | NUR ---
ECHO pharmacy technologist at bedside
[2019-09-01] MEDS: hydrALAZINE HCL 25 MG TAB PO SCH ×2 (14:00→14:53)
--- NOTE | 2019-09-01 14:40 | NUR ---
MD VISIT at bedside speaking with patient regarding discharge and plan of care.
--- NOTE | 2019-09-01 14:50 | NUR ---
PT EVAL Physical therapist at bedside walking patient with portable monitor and walker one lap around nurses station. Patient tolerated activity well. No distress noted.
[2019-09-01] MEDS ORDERED: FURO1TAB33 PO (14:55)
[2019-09-01] MEDS ORDERED: HYDR-2691 PO (14:55)
[2019-09-01] MEDS ORDERED: POTA-220 PO (14:55)
[2019-09-01] MEDS ORDERED: ASP81EC PO (14:55)
[2019-09-01] MEDS ORDERED: AML5T PO (14:55)
--- NOTE | 2019-09-01 15:31 | NUR ---
assessment Patient is a 84 year old female who is alert and oriented. Patients cognitive abilities are intact. Prior to admission patient lived home alone and functioned independently. Patient informed me she is able to care for her own ADLs. Per patient she will return home to her prior living arrangements post discharge and family will transport her home. I informed patient of her ss consult for needing assistance with ADL's. Patient informed me she can care for her own ADL's, she needs assistance with cutting her toe nails and foot calluses. Patient informed me her PCP Dr Gresham has put in a referral for Dr Mars medical record consultant. Patient is waiting for referral now. I informed patient she has a ss consult for home safety and PT. Patient is agreeable. Karissa TERAN will satisfy order. I informed patient she has a right to speak to a transition social worker regarding all care. I informed patient she has a right to participate in any and all discharge planning. Patient does not have a POA and advanced directive. I have offered patient information on POA and advanced directives. I informed the patient the advantages and benefits of having an Advanced Directive. Patient verbalized understanding and agreed to discharge plan home. Addendum: 09/01/19 at 1536 by Radha Read Amended: Links added.
--- NOTE | 2019-09-01 15:33 | NUR ---
D/C planning Per consult for home health safety evaluation and physical therapy. Faxed clinical information to [facility]. Per Caroline with [facility] patient has been accepted and service to start within 24-48hrs upon d/c day.
--- NOTE | 2019-09-01 16:08 | NUR ---
PATIENT MEDICINE ASSISTANT Radha Millan consulted to assist with setting up pleater hand for patient.
--- NOTE | 2019-09-01 17:50 | NUR ---
IV D/C Right IJ central line removed. Pressure held, clear dressing applied. No signs of bleeding noted.
[2019-09-01] MEDS ORDERED: FUROSEMIDE 40 MG/4 ML VIAL IV SCH (18:00)
--- NOTE | 2019-09-01 18:00 | NUR ---
DISCHARGE FROM ICU Discharge instructions given as ordered. Encourage to follow up with PMD as instructed. All questions and concerns addressed. Patient verbalized understanding. Medication reconciliation form completed and copy given to patient. IV removed with catheter intact, pressure dressing applied. Patient taken to vehicle via wheelchair with all personal belongings, accompanied by staff and family member. No distress noted at time of departure.
[2019-09-02] MEDS ORDERED: POTASSIUM CHL 20 Meq TABLET PO SCH (10:00)
[2019-09-02] MEDS ORDERED: CLOPIDOGREL BISULFATE 75 MG TAB PO SCH (10:00)
[2019-09-02] MEDS ORDERED: FUROSEMIDE 20 MG TAB PO SCH (10:00)
== END 2019-09-01 18:00 | disposition home health service (06) | DRG 280 ==
LOC: EDUNIT# 16:53 → EDBD 16:53 → ER 16:53 → CATH 1 18:49 → ICU WEST 18:50
PROVIDERS: ADMIT Internal Medicine; ATTEND Internal Medicine
PROC: 02HV33Z Insertion of Infusion Device into Superior Vena Cava, Percutaneous Approach (ICD-10-PCS; principal; 2019-08-31)
PROC: 4A023N7 Measurement of Cardiac Sampling and Pressure, Left Heart, Percutaneous Approach (ICD-10-PCS; 2019-08-31)
PROC: B2111ZZ Fluoroscopy of Multiple Coronary Arteries using Low Osmolar Contrast (ICD-10-PCS; 2019-08-31)
PROC: B2151ZZ Fluoroscopy of Left Heart using Low Osmolar Contrast (ICD-10-PCS; 2019-08-31)
DX: I21.4 Non-ST elevation (NSTEMI) myocardial infarction (principal); I50.31 Acute diastolic (congestive) heart failure; I16.1 Hypertensive emergency; I13.0 Hypertensive heart and chronic kidney disease with heart failure and stage 1 through stage 4 chronic kidney disease, or unspecified chronic kidney disease; N17.9 Acute kidney failure, unspecified; I21.29 ST elevation (STEMI) myocardial infarction involving other sites; I25.10 Atherosclerotic heart disease of native coronary artery without angina pectoris; E66.9 Obesity, unspecified; R00.1 Bradycardia, unspecified; D72.829 Elevated white blood cell count, unspecified; E11.22 Type 2 diabetes mellitus with diabetic chronic kidney disease; E66.01 Morbid (severe) obesity due to excess calories; E78.5 Hyperlipidemia, unspecified; I35.0 Nonrheumatic aortic (valve) stenosis; J44.9 Chronic obstructive pulmonary disease, unspecified; N18.3 Chronic kidney disease, stage 3 (moderate); Z68.38 Body mass index [BMI] 38.0-38.9, adult; Z88.2 Allergy status to sulfonamides; I25.2 Old myocardial infarction; Z88.0 Allergy status to penicillin; Z88.5 Allergy status to narcotic agent; Z82.49 Family history of ischemic heart disease and other diseases of the circulatory system; Z86.73 Personal history of transient ischemic attack (TIA), and cerebral infarction without residual deficits
CPT/HCPCS: 36415; 36556; 71045; 80053; 81001; 83036; 83735; 83880; 84484; 85025; 87081; 93005; 93306; 93458; 96374; 96375; 97163; 99152; 99153; 99291; C1887; C9113; G0378; J2250; Q9967

== ENCOUNTER 2021-02-09 09:30 | Inpatient (IN) | payer OTHER, MEDICAID ==
[~2021-02-09] VITALS: Ht 152.4 cm; Wt 84.0 kg
[~2021-02-09 09:30] MED LIST changes: +ASPI-394 PO; -ATE50T PO; -CLOP75TA41 PO; +CLOP75TA70 PO; +CYCL-838 PO; -CYCL7.5T15 PO; +HYDR25TA87 PO; +ISOS1TAB28 PO; -ISOS30TA4 PO; -KETO0.5S31 LEFTEYE; -LOSA25TA38 PO; +POTA-220 PO
[2021-02-09 10:25] LABS: Eosinophils # (auto) 0.3 10 ^3/uL (0-0.8); Eosinophils % (auto) 2.4 % (0.0-7.0); Red Blood Cells 4.32 10^6/uL (4.0-5.20); White Blood Cell 12.4 10^3/uL (4.4-10.8)
[2021-02-09 10:27] LABS: Basophils # (auto) 0 10 ^3/uL (0-0.2); Basophils % (auto) 0.3 % (0.0-2.0); Hematocrit 35.1 % (36.0-46.0); Hemoglobin 11.3 g/dL (12.2-16.2); Lymphocytes # (auto) 1.1 10 ^3/uL (0.4-5.4); Lymphocytes % (auto) 9.2 % (10.0-50.0); Mean Corpuscular Hemoglobin 26.2 pg (28.0-32.0); Mean Corpuscular Hgb Conc. 32.3 g/dL (32.0-36.0); Mean Corpuscular Volume 81.1 fL (80.0-100.0); Monocytes # (auto) 0.8 10 ^3/uL (0-1.3); Monocytes % (auto) 6.2 % (0.0-12.0); Neutrophils # (auto) 10.1 10 ^3/uL (1.6-8.6); Neutrophils % (auto) 81.9 % (37.0-80.0); Red Cell Distribution Width 14.8 % (11.8-14.3)
[2021-02-09 10:51] LABS: Albumin 2.8 g/dL (3.4-5.0); Calcium 8.8 mg/dL (8.5-10.1); Magnesium 2.2 mg/dL (1.6-2.6); Potassium 4.2 mmol/L (3.5-5.1)
[2021-02-09 10:59] LABS: BUN/Creatinine Ratio 21.5; Bilirubin, Total 0.5 mg/dL (0.2-1.0); Total Protein 8.3 g/dL (6.4-8.2)
[2021-02-09 15:32] LABS: Urine WBC None Seen /hpf (0 - 5)
[2021-02-09] MEDS ORDERED: amLODIPine BESYLATE 5 MG TAB PO ONE (15:45)
[2021-02-09 15:56] LABS: Urine Bacteria NONE SEEN /hpf (None Seen); Urine Blood Negative /uL (Negative); Urine Specific Gravity 1.014 (1.001-1.035)
[2021-02-10] MEDS ORDERED: NITROGLYCERIN 0.4 MG SL TAB SL PRN (04:30)
[2021-02-10] MEDS ORDERED: ONDANSETRON HCL 4 MG/2 ML VIAL IV PRN (04:30)
[2021-02-10] MEDS ORDERED: ACETAMINOPHEN 325 MG TAB PO PRN (04:30)
[2021-02-10] MEDS ORDERED: DEXTROSE (50%) 50ML SYRG IV PRN (04:30)
[2021-02-10] MEDS ORDERED: FUROSEMIDE 40 MG/4 ML VIAL IV ONE (04:30)
[2021-02-10] MEDS ORDERED: MORPHINE SULFATE INJECTION 2 MG/ML SYRG IV PRN (04:30)
[2021-02-10] MEDS ORDERED: LEVOTHYROXINE SODIUM 25 MCG TAB PO SCH (07:00)
[2021-02-10] MEDS: InsuLIN REG 1unit/0.01ml Soln (100units/ml) SC SCH ×4 (07:00→21:10)
[2021-02-10] MEDS: ACCU-CHEK COMFORT CURVE STRIP VI SCH ×4 (07:08→21:10)
[2021-02-10] MEDS: LEVOTHYROXINE SODIUM 50 MCG TAB PO SCH (07:26)
[2021-02-10 08:00] VITALS: BP 190/74
[2021-02-10] MEDS: cloNIDine HCL 0.1 MG TAB PO PRN (08:35)
[2021-02-10] MEDS ORDERED: FLUT100I IN (10:06)
[2021-02-10] MEDS ORDERED: LATA0.0019 EACHEYE (10:06)
[2021-02-10] MEDS: ASPirin 81 mg TAB PO SCH (11:15)
[2021-02-10] MEDS: PANTOPRAZOLE 40 MG TAB PO SCH (11:15)
[2021-02-10] MEDS: CLOPIDOGREL BISULFATE 75 MG TAB PO SCH (11:16)
[2021-02-10] MEDS: ISOSORBIDE MONONITRATE ER 60 MG TAB PO SCH (11:16)
[2021-02-10] MEDS: FUROSEMIDE 40 MG TAB PO SCH (11:16)
[2021-02-10 12:00] VITALS: BP 153/62
[2021-02-10] MEDS ORDERED: ALBUTEROL SULF 2.5 MG/0.5ML(0.5%) NEB SOLN NEB PRN (13:30)
[2021-02-10] MEDS ORDERED: IPRATROPIUM BROM 0.5 MG/2.5ML INH SOL NEB PRN (13:30)
[2021-02-10 16:00] VITALS: BP 152/62
[2021-02-10] MEDS ORDERED: IOHEXOL 350 MG/ML 100ML IJ ONE (17:25)
[2021-02-10] MEDS: ATORVASTATIN 20 MG TAB PO SCH (21:14)
[2021-02-10 22:00] VITALS: BP 159/67
[2021-02-11] VITALS (7 sets, daily range): BP systolic 152–171; BP diastolic 62–73
[2021-02-11 06:27] LABS: Basophils # (auto) 0.1 10 ^3/uL (0-0.2); Eosinophils # (auto) 0.7 10 ^3/uL (0-0.8); Monocytes % (auto) 10.3 % (0.0-12.0)
[2021-02-11 06:29] LABS: Basophils % (auto) 1.2 % (0.0-2.0); Eosinophils % (auto) 7.4 % (0.0-7.0); Hemoglobin 11.2 g/dL (12.2-16.2); Lymphocytes # (auto) 1.4 10 ^3/uL (0.4-5.4); Mean Corpuscular Hemoglobin 26.6 pg (28.0-32.0); Mean Corpuscular Hgb Conc. 32.9 g/dL (32.0-36.0); Mean Corpuscular Volume 80.8 fL (80.0-100.0); Neutrophils # (auto) 6.6 10 ^3/uL (1.6-8.6); Neutrophils % (auto) 67.1 % (37.0-80.0); Nucleated Red Blood Cells % 0.1 %; Red Blood Cells 4.21 10^6/uL (4.0-5.20); Red Cell Distribution Width 14.3 % (11.8-14.3); White Blood Cell 9.8 10^3/uL (4.4-10.8)
[2021-02-11 06:41] LABS: Calcium 8.9 mg/dL (8.5-10.1); Potassium 4.4 mmol/L (3.5-5.1)
[2021-02-11] MEDS: LEVOTHYROXINE SODIUM 50 MCG TAB PO SCH (06:44)
[2021-02-11] MEDS: ACCU-CHEK COMFORT CURVE STRIP VI SCH ×4 (06:45→22:06)
[2021-02-11] MEDS: InsuLIN REG 1unit/0.01ml Soln (100units/ml) SC SCH ×4 (06:45→22:05)
[2021-02-11 06:47] LABS: Albumin 2.5 g/dL (3.4-5.0); BUN/Creatinine Ratio 25.9; Bilirubin, Total 0.6 mg/dL (0.2-1.0); Total Protein 6.4 g/dL (6.4-8.2)
[2021-02-11] MEDS: ASPirin 81 mg TAB PO SCH (09:16)
[2021-02-11] MEDS: ISOSORBIDE MONONITRATE ER 60 MG TAB PO SCH (09:17)
[2021-02-11] MEDS: FUROSEMIDE 40 MG TAB PO SCH (09:18)
[2021-02-11] MEDS: PANTOPRAZOLE 40 MG TAB PO SCH (09:18)
[2021-02-11] MEDS: CLOPIDOGREL BISULFATE 75 MG TAB PO SCH (09:18)
[2021-02-11] MEDS ORDERED: DOXY-338 PO (16:14)
[2021-02-11] MEDS ORDERED: methylPREDNISolone SOD SUCC 125 MG/2 ML VL IV ONE (16:15)
[2021-02-11] MEDS: amLODIPine BESYLATE 5 MG TAB PO SCH (16:47)
[2021-02-11] MEDS: DOXYCYCLINE 100 MG TAB/CAP PO SCH ×2 (16:48→21:49)
[2021-02-11] MEDS ORDERED: PRED20TA2 PO (16:55)
[2021-02-11] MEDS: ATORVASTATIN 20 MG TAB PO SCH (21:49)
[2021-02-11] MEDS: methylPREDNISolone SOD SUCC 40 MG/ML VL IV SCH (21:56)
[2021-02-12] MEDS: cloNIDine HCL 0.1 MG TAB PO PRN (04:42)
[2021-02-12 05:00] VITALS: BP 165/86
[2021-02-12] MEDS: methylPREDNISolone SOD SUCC 40 MG/ML VL IV SCH ×2 (05:38→14:38)
[2021-02-12] MEDS: InsuLIN REG 1unit/0.01ml Soln (100units/ml) SC SCH ×3 (06:47→18:31)
[2021-02-12] MEDS: LEVOTHYROXINE SODIUM 50 MCG TAB PO SCH (06:48)
[2021-02-12] MEDS: ACCU-CHEK COMFORT CURVE STRIP VI SCH ×3 (06:48→17:00)
[2021-02-12 06:49] LABS: Basophils # (auto) 0 10 ^3/uL (0-0.2); Eosinophils # (auto) 0 10 ^3/uL (0-0.8); Lymphocytes # (auto) 0.8 10 ^3/uL (0.4-5.4); Monocytes # (auto) 0.1 10 ^3/uL (0-1.3)
[2021-02-12 06:52] LABS: Basophils % (auto) 0.2 % (0.0-2.0); Hematocrit 36.3 % (36.0-46.0); Hemoglobin 11.6 g/dL (12.2-16.2); Lymphocytes % (auto) 11.8 % (10.0-50.0); Mean Corpuscular Hemoglobin 25.6 pg (28.0-32.0); Mean Corpuscular Volume 80.1 fL (80.0-100.0); Monocytes % (auto) 0.9 % (0.0-12.0); Neutrophils # (auto) 5.9 10 ^3/uL (1.6-8.6); Neutrophils % (auto) 87.1 % (37.0-80.0); Nucleated Red Blood Cells % 0.1 %; Red Blood Cells 4.53 10^6/uL (4.0-5.20); Red Cell Distribution Width 13.7 % (11.8-14.3); White Blood Cell 6.7 10^3/uL (4.4-10.8)
[2021-02-12 07:07] LABS: BUN/Creatinine Ratio 33.9; Calcium 8.8 mg/dL (8.5-10.1); Potassium 4.8 mmol/L (3.5-5.1)
[2021-02-12 09:00] VITALS: BP 150/70
[2021-02-12] MEDS: ASPirin 81 mg TAB PO SCH (09:38)
[2021-02-12] MEDS: ISOSORBIDE MONONITRATE ER 60 MG TAB PO SCH (09:39)
[2021-02-12] MEDS: amLODIPine BESYLATE 5 MG TAB PO SCH (09:39)
[2021-02-12] MEDS: FUROSEMIDE 40 MG TAB PO SCH (09:39)
[2021-02-12] MEDS: DOXYCYCLINE 100 MG TAB/CAP PO SCH (09:40)
[2021-02-12] MEDS: CLOPIDOGREL BISULFATE 75 MG TAB PO SCH (09:40)
[2021-02-12] MEDS: PANTOPRAZOLE 40 MG TAB PO SCH (09:40)
[2021-02-12 13:00] VITALS: BP 138/61
[2021-02-12 17:00] VITALS: BP 151/61
[2021-02-13] MEDS ORDERED: ASPirin 81 mg TAB PO SCH (10:00)
== END 2021-02-12 19:33 | disposition home health service (06) | DRG 280 ==
LOC: ER 09:30 → TELE 09:31 → TELE-WESTW 02-10 06:20
PROVIDERS: ADMIT Nurse Practitioner; ATTEND Internal Medicine
DX: I21.4 Non-ST elevation (NSTEMI) myocardial infarction (principal); J96.01 Acute respiratory failure with hypoxia; I13.0 Hypertensive heart and chronic kidney disease with heart failure and stage 1 through stage 4 chronic kidney disease, or unspecified chronic kidney disease; J44.1 Chronic obstructive pulmonary disease with (acute) exacerbation; J98.11 Atelectasis; J84.9 Interstitial pulmonary disease, unspecified; I50.9 Heart failure, unspecified; E11.21 Type 2 diabetes mellitus with diabetic nephropathy; Z20.822 Contact with and (suspected) exposure to COVID-19; D72.829 Elevated white blood cell count, unspecified; E03.9 Hypothyroidism, unspecified; E66.01 Morbid (severe) obesity due to excess calories; E11.22 Type 2 diabetes mellitus with diabetic chronic kidney disease; I25.10 Atherosclerotic heart disease of native coronary artery without angina pectoris; I35.0 Nonrheumatic aortic (valve) stenosis; N18.30 Chronic kidney disease, stage 3 unspecified; Z68.36 Body mass index [BMI] 36.0-36.9, adult; Z79.02 Long term (current) use of antithrombotics/antiplatelets; Z82.49 Family history of ischemic heart disease and other diseases of the circulatory system; Z86.73 Personal history of transient ischemic attack (TIA), and cerebral infarction without residual deficits; Z87.891 Personal history of nicotine dependence; Z88.0 Allergy status to penicillin; Z88.2 Allergy status to sulfonamides; Z88.6 Allergy status to analgesic agent
CPT/HCPCS: 36415; 36600; 71046; 78582; 80048; 80053; 81001; 82805; 82962; 83735; 83880; 84484; 85025; 85379; 87426; 93005; 93306; 93970; 96374; G0378; J1815

== ENCOUNTER 2022-06-29 15:04 | Inpatient (IN) | payer OTHER, MEDICAID ==
[~2022-06-29] VITALS: Ht 152.4 cm; Wt 61.0 kg
[~2022-06-29 15:04] MED LIST changes: +DOXY-338 PO; +FLUT100I IN; +LATA0.0019 EACHEYE; +PRED20TA2 PO
[2022-06-29] MEDS ORDERED: FUROSEMIDE 40 MG/4 ML VIAL IV ONE (15:30)
[2022-06-29 15:54] LABS: Eosinophils # (auto) 0.3 10 ^3/uL (0-0.8); Hemoglobin 11.2 g/dL (12.2-16.2); Lymphocytes # (auto) 1.9 10 ^3/uL (0.4-5.4); Monocytes # (auto) 1.1 10 ^3/uL (0-1.3)
[2022-06-29 15:55] LABS: Basophils # (auto) 0.1 10 ^3/uL (0-0.2); Basophils % (auto) 0.7 % (0.0-2.0); Eosinophils % (auto) 2.5 % (0.0-7.0); Hematocrit 35.3 % (36.0-46.0); Lymphocytes % (auto) 17.8 % (10.0-50.0); Mean Corpuscular Hemoglobin 25.3 pg (28.0-32.0); Mean Corpuscular Hgb Conc. 31.7 g/dL (32.0-36.0); Mean Corpuscular Volume 79.8 fL (80.0-100.0); Neutrophils # (auto) 7.3 10 ^3/uL (1.6-8.6); Red Blood Cells 4.43 10^6/uL (4.0-5.20); Red Cell Distribution Width 15.9 % (11.8-14.3); White Blood Cell 10.6 10^3/uL (4.4-10.8)
[2022-06-29 16:06] LABS: Albumin 3.1 g/dL (3.4-5.0); Potassium 4.2 mmol/L (3.5-5.1)
[2022-06-29 16:10] LABS: BUN/Creatinine Ratio 22.6 (10.0-20.0); Bilirubin, Total 0.4 mg/dL (0.2-1.0); Total Protein 7.5 g/dL (6.4-8.2)
[2022-06-29] MEDS ORDERED: LABETALOL HCL 5 MG/ML 4ML SYRINGE IV ONE (16:15)
[2022-06-29] MEDS ORDERED: ACETAMINOPHEN 325 MG TAB PO PRN (19:30)
[2022-06-29] MEDS ORDERED: NITROGLYCERIN 0.4 MG SL TAB SL PRN (19:30)
[2022-06-29] MEDS ORDERED: DEXTROSE (50%) 50ML SYRG IV PRN (19:45)
[2022-06-29] MEDS ORDERED: ALBUTEROL SULF 2.5 MG/0.5ML(0.5%) NEB SOLN NEB PRN (19:45)
[2022-06-29] MEDS ORDERED: ASPirin 81 mg TAB PO ONE (19:45)
[2022-06-29 20:00] VITALS: BP 181/80
[2022-06-29] MEDS ORDERED: hydrALAZINE HCL 20 MG/ML VL IV PRN (20:00)
[2022-06-29 20:12] LABS: Cholesterol 118 mg/dL (< 200); Triglycerides 94 mg/dL (< 150)
[2022-06-29 20:15] LABS: HDL Cholesterol 50 mg/dL (40-59); LDL Cholesterol 57 mg/dL (< 100)
[2022-06-29 20:54] LABS: Urine Bacteria MOD /hpf (None Seen); Urine Blood TRACE /uL (Negative); Urine Specific Gravity 1.013 (1.001-1.035); Urine WBC 22 /hpf (0 - 5)
[2022-06-29] MEDS: ACCU-CHEK COMFORT CURVE STRIP VI SCH (22:00)
[2022-06-29] MEDS: InsuLIN REG 1unit/0.01ml Soln (100units/ml) SC SCH (22:00)
[2022-06-29] MEDS: hydrALAZINE HCL 25 MG TAB PO SCH (23:12)
[2022-06-29] MEDS: GABAPENTIN 300 MG CAP PO SCH (23:12)
[2022-06-29] MEDS: ALBUTEROL SULF 2.5 MG/0.5ML(0.5%) NEB SOLN NEB SCH (23:22)
[2022-06-29] MEDS: IPRATROPIUM BROM 0.5 MG/2.5ML INH SOL NEB SCH (23:22)
[2022-06-30] MEDS: IPRATROPIUM BROM 0.5 MG/2.5ML INH SOL NEB SCH ×4 (02:00→14:29)
[2022-06-30] MEDS: ALBUTEROL SULF 2.5 MG/0.5ML(0.5%) NEB SOLN NEB SCH ×4 (02:00→14:29)
[2022-06-30 06:22] LABS: Eosinophils # (auto) 0.3 10 ^3/uL (0-0.8); Nucleated Red Blood Cells % 0.1 %
[2022-06-30 06:23] LABS: Basophils # (auto) 0.1 10 ^3/uL (0-0.2); Basophils % (auto) 1.3 % (0.0-2.0); Eosinophils % (auto) 2.9 % (0.0-7.0); Hematocrit 34.4 % (36.0-46.0); Hemoglobin 10.8 g/dL (12.2-16.2); Lymphocytes # (auto) 1.5 10 ^3/uL (0.4-5.4); Lymphocytes % (auto) 14.6 % (10.0-50.0); Mean Corpuscular Hgb Conc. 31.5 g/dL (32.0-36.0); Mean Corpuscular Volume 79.3 fL (80.0-100.0); Neutrophils # (auto) 7.2 10 ^3/uL (1.6-8.6); Neutrophils % (auto) 71.2 % (37.0-80.0); Red Blood Cells 4.34 10^6/uL (4.0-5.20); Red Cell Distribution Width 15.9 % (11.8-14.3); White Blood Cell 10.1 10^3/uL (4.4-10.8)
[2022-06-30] MEDS: hydrALAZINE HCL 25 MG TAB PO SCH (06:25)
[2022-06-30] MEDS: ACCU-CHEK COMFORT CURVE STRIP VI SCH ×2 (06:26→11:49)
[2022-06-30] MEDS: InsuLIN REG 1unit/0.01ml Soln (100units/ml) SC SCH ×2 (06:26→11:48)
[2022-06-30] MEDS: GABAPENTIN 300 MG CAP PO SCH (06:26)
[2022-06-30 06:40] LABS: Calcium 8.8 mg/dL (8.5-10.1); Potassium 3.9 mmol/L (3.5-5.1)
[2022-06-30] MEDS ORDERED: LEVOTHYROXINE SODIUM 25 MCG TAB PO SCH (07:00)
[2022-06-30 07:20] LABS: BUN/Creatinine Ratio 20.4 (10.0-20.0); Bilirubin, Total 0.5 mg/dL (0.2-1.0)
[2022-06-30] MEDS ORDERED: ENOXAPARIN SOD 40 MG/0.4 ML SYRINGE SC SCH (10:00)
[2022-06-30] MEDS ORDERED: ASPirin 81 mg TAB PO SCH (10:00)
[2022-06-30] MEDS ORDERED: amLODIPine BESYLATE 5 MG TAB PO SCH (10:00)
[2022-06-30] MEDS ORDERED: FUROSEMIDE 20 MG/2 ML VIAL IV SCH (10:00)
[2022-06-30] MEDS ORDERED: ISOSORBIDE MONONITRATE ER 60 MG TAB PO SCH (10:00)
[2022-06-30] MEDS ORDERED: PATIENTS OWN MEDICATION (Atorvastatin Calcium 1 TAB) PO SCH (10:00)
[2022-06-30] MEDS ORDERED: ATORVASTATIN 20 MG TAB PO SCH (10:00)
[2022-06-30] MEDS ORDERED: POTASSIUM CHL 20 Meq TABLET PO SCH (10:00)
[2022-06-30] MEDS ORDERED: NYSTATIN TOPICAL POWDER 15GM TOP SCH (10:00)
[2022-06-30] MEDS ORDERED: CLOPIDOGREL BISULFATE 75 MG TAB PO SCH (10:00)
[2022-06-30] MEDS ORDERED: levoFLOXacin 500MG 100 ML IV SCH (10:45)
[2022-06-30] MEDS ORDERED: FUROSEMIDE 20 MG/2 ML VIAL IV ONE (13:15)
[2022-06-30] MEDS ORDERED: FURO1TAB31 PO (13:16)
[2022-06-30 14:00] VITALS: BP 162/58
[2022-07-01] MEDS ORDERED: levoFLOXacin 250MG 50 ML IV SCH (10:00)
== END 2022-06-30 14:52 | disposition home or self-care (01) | DRG 304 ==
LOC: ER 15:04 → EDUNIT# 15:04 → EDBD 15:04 → TELE 19:32
PROVIDERS: ADMIT Nurse Practitioner Family; ATTEND Internal Medicine
DX: I16.0 Hypertensive urgency (principal); J96.01 Acute respiratory failure with hypoxia; I50.42 Chronic combined systolic (congestive) and diastolic (congestive) heart failure; Z20.822 Contact with and (suspected) exposure to COVID-19; I11.0 Hypertensive heart disease with heart failure; J44.9 Chronic obstructive pulmonary disease, unspecified; E78.5 Hyperlipidemia, unspecified; E11.9 Type 2 diabetes mellitus without complications; I25.10 Atherosclerotic heart disease of native coronary artery without angina pectoris; E03.9 Hypothyroidism, unspecified; Z99.81 Dependence on supplemental oxygen; I25.2 Old myocardial infarction; Z82.49 Family history of ischemic heart disease and other diseases of the circulatory system; Z86.73 Personal history of transient ischemic attack (TIA), and cerebral infarction without residual deficits; Z88.0 Allergy status to penicillin; Z90.710 Acquired absence of both cervix and uterus
CPT/HCPCS: 36415; 51702; 71045; 71275; 80053; 80061; 81001; 82962; 83036; 83880; 84443; 84484; 85025; 85379; 87426; 93005; 93306; 93970; 94640; 97163; 99291; G0378; J1815; J1956; J3490

== ENCOUNTER 2023-05-08 15:12 | Inpatient (IN) | payer OTHER, MEDICAID ==
[~2023-05-08] VITALS: Ht 152.4 cm; Wt 72.0 kg
[~2023-05-08 15:12] MED LIST changes: -DOXY-338 PO; +DOXY-447 PO; +FURO1TAB31 PO; +GABA-1250 PO; -GABA300C10 PO; -LATA0.0019 EACHEYE; +LATA0.008 EACHEYE
[2023-05-08 18:42] LABS: Eosinophils # (auto) 0.1 10 ^3/uL (0-0.8); Hemoglobin 12.6 g/dL (12.2-16.2); Nucleated Red Blood Cells % 0.1 %; White Blood Cell 15.2 10^3/uL (4.4-10.8)
[2023-05-08 18:43] LABS: Basophils # (auto) 0.2 10 ^3/uL (0-0.2); Hematocrit 39.5 % (36.0-46.0); Lymphocytes # (auto) 1.2 10 ^3/uL (0.4-5.4); Mean Corpuscular Hemoglobin 26.1 pg (28.0-32.0); Mean Corpuscular Volume 81.5 fL (80.0-100.0); Monocytes % (auto) 6.5 % (0.0-12.0); Neutrophils # (auto) 12.7 10 ^3/uL (1.6-8.6); Neutrophils % (auto) 83.5 % (37.0-80.0); Red Blood Cells 4.84 10^6/uL (4.0-5.20); Red Cell Distribution Width 14.7 % (11.8-14.3)
[2023-05-08 19:14] LABS: Alanine Aminotransferase 18 U/L (7-40); Albumin 4.4 g/dL (3.2-4.8); Alkaline Phosphatase 132 U/L (46-116); Anion Gap 9 (5-15); Aspartate Aminotransferase 34 U/L (13-40); BUN/Creatinine Ratio 23.1 (10.0-20.0); Blood Urea Nitrogen 21 mg/dL (9-23); Calcium 9.7 mg/dL (8.7-10.4); Carbon Dioxide 24 mmol/L (20-30); Chloride 108 mmol/L (98-107); Glucose 105 mg/dL (74-106); Lipase 45 U/L (12-53); Potassium 4.2 mmol/L (3.5-5.1); Sodium 141 mmol/L (136-145)
[2023-05-08 19:15] LABS: Bilirubin, Total 0.8 mg/dL (0.2-1.0); Total Protein 7.2 g/dL (5.7-8.2)
[2023-05-08] MEDS: MORPHINE SULFATE INJ 2 MG/ml SYRG IM ONE (21:33)
[2023-05-08] MEDS: ONDANSETRON ODT 4 MG TAB PO ONE (21:34)
[2023-05-09] MEDS: SODIUM CHLORIDE 0.9% 1,000 ML IV SCH (01:30)
[2023-05-09] MEDS ORDERED: DEXTROSE (50%) 50ML SYRG IV PRN (01:30)
[2023-05-09] MEDS ORDERED: ONDANSETRON HCL 4 MG/2 ML VIAL IV PRN (01:30)
[2023-05-09] MEDS: ATORVASTATIN 20 MG TAB PO SCH (02:40)
[2023-05-09] MEDS: levoFLOXacin 500MG 100 ML IV SCH (02:40)
[2023-05-09] MEDS: ASPirin 81 mg TAB PO SCH (02:40)
[2023-05-09] MEDS: ENOXAPARIN SOD 80 MG/0.8ML SYRINGE SC SCH (03:20)
[2023-05-09] MEDS: InsuLIN REG 1unit/0.01ml Soln (100units/ml) SC SCH (06:00)
[2023-05-09] MEDS ORDERED: DOCUSATE SOD 100 MG CAP PO PRN (06:45)
[2023-05-09] MEDS: ACCU-CHEK COMFORT CURVE STRIP VI SCH (06:48)
[2023-05-09 07:30] VITALS: PULSE 67; RESP 18; O2SAT 98
[2023-05-09 13:16] LABS: Eosinophils # (auto) 0.4 10 ^3/uL (0-0.8); Hematocrit 37.2 % (36.0-46.0)
[2023-05-09 13:18] LABS: Basophils # (auto) 0 10 ^3/uL (0-0.2); Basophils % (auto) 0.2 % (0.0-2.0); Eosinophils % (auto) 3.9 % (0.0-7.0); Hemoglobin 11.5 g/dL (12.2-16.2); Lymphocytes # (auto) 2.1 10 ^3/uL (0.4-5.4); Lymphocytes % (auto) 21.5 % (10.0-50.0); Mean Corpuscular Hemoglobin 25.8 pg (28.0-32.0); Mean Corpuscular Volume 83.2 fL (80.0-100.0); Monocytes % (auto) 10.4 % (0.0-12.0); Neutrophils # (auto) 6.4 10 ^3/uL (1.6-8.6); Red Blood Cells 4.47 10^6/uL (4.0-5.20); Red Cell Distribution Width 15.4 % (11.8-14.3)
[2023-05-09 13:30] LABS: Triglycerides 149 mg/dL (< 150)
[2023-05-09 13:31] LABS: LDL Cholesterol 50 mg/dL (< 100)
[2023-05-09 13:32] LABS: Cholesterol 122 mg/dL (< 200); HDL Cholesterol 41 mg/dL (40-59)
[2023-05-09] MEDS: ACETAMINOPHEN 325 MG TAB PO PRN (14:54)
[2023-05-09 16:47] LABS: Urine Bacteria NONE SEEN /hpf (None Seen); Urine Blood Negative /uL (Negative); Urine Clarity Clear (Clear); Urine Color Yellow (Yellow); Urine Hyaline Cast FEW /lpf (0 - 2); Urine Protein, UAD 1+ (Negative); Urine Specific Gravity 1.016 (1.001-1.035); Urine Urobilinogen Normal (Negative); Urine WBC 1 /hpf (0 - 5); Urine pH 5.5 (5.0-8.0)
[2023-05-09] MEDS: HYDROcodone-ACET 5/325MG TAB PO PRN (21:25)
[2023-05-09 22:32] VITALS: PULSE 70; RESP 16; O2SAT 95
[2023-05-09 23:00] VITALS: BP 177/56; PULSE 81; RESP 20; TEMP 98.7; O2SAT 96
[2023-05-09] MEDS: IOHEXOL 350 MG/ML 100ML IJ ONE (23:18)
[2023-05-09 23:20] VITALS: BP 177/56; PULSE 81; RESP 18; TEMP 98.7; O2SAT 96
[2023-05-09] MEDS: hydrALAZINE HCL 20 MG/ML VL IV PRN (23:47)
[2023-05-10] VITALS (13 sets, daily range): BP systolic 107–155; BP diastolic 46–58; PULSE 91–107; RESP 16–20; TEMP 97.5–99.4; O2SAT 92–98
[2023-05-10 06:31] LABS: Red Cell Distribution Width 15.2 % (11.8-14.3)
[2023-05-10 06:33] LABS: Hematocrit 37.7 % (36.0-46.0); Hemoglobin 11.9 g/dL (12.2-16.2); Mean Corpuscular Hemoglobin 26.4 pg (28.0-32.0); Mean Corpuscular Hgb Conc. 31.6 g/dL (32.0-36.0); Mean Corpuscular Volume 83.7 fL (80.0-100.0); Red Blood Cells 4.51 10^6/uL (4.0-5.20); White Blood Cell 15.1 10^3/uL (4.4-10.8)
[2023-05-10] MEDS ORDERED: LEVO50TA7 PO (06:40)
[2023-05-10] MEDS ORDERED: LEVO25TA6 PO (06:40)
[2023-05-10] MEDS ORDERED: GLIM2TAB33 PO (06:40)
[2023-05-10] MEDS ORDERED: GABA-1250 PO (06:40)
[2023-05-10] MEDS ORDERED: ATOR10TA52 PO (06:40)
[2023-05-10 06:46] LABS: Calcium 9.2 mg/dL (8.5-10.1); Chloride 109 mmol/L (98-107); Potassium 4.2 mmol/L (3.5-5.1); Sodium 141 mmol/L (136-145)
[2023-05-10 06:47] LABS: Anion Gap 11 (5-15); Carbon Dioxide 21 mmol/L (20-30)
[2023-05-10 06:52] LABS: BUN/Creatinine Ratio 16.4 (10.0-20.0); Blood Urea Nitrogen 21 mg/dL (9-23); Glucose 91 mg/dL (74-106)
[2023-05-10 07:28] LABS: Basophils % (manual) 0 (0.0-2.0); Blast Cells 0; Metamyelocytes % 0; Myelocytes % 0; Promyelocytes % 0; Reactive Lymphocytes 0
[2023-05-10 13:14] LABS: Band Neutrophils % (manual) 15; Eosinophils % (manual) 3 (0-7); Lymphocytes % (manual) 5 (10.0-50.0); Monocytes % (manual) 4 (0-12); Platelet Estimate Adequate
[2023-05-10] MEDS: amLODIPine BESYLATE 5 MG TAB PO ONE (15:30)
[2023-05-10] MEDS ORDERED: POTA8TAB38 PO (16:02)
[2023-05-10] MEDS ORDERED: BUME0.5T4 PO (16:02)
[2023-05-10] MEDS ORDERED: LEVO500T91 PO (16:09)
[2023-05-10] MEDS: Glucerna Carbsteady SHAKE Vanilla 8oz PO SCH (18:06)
[2023-05-10] MEDS: IPRATROPIUM BROM 0.5 MG/2.5ML INH SOL NEB SCH (18:43)
[2023-05-10] MEDS: ALBUTEROL SULF 2.5 MG/0.5ML(0.5%) NEB SOLN NEB SCH (18:44)
[2023-05-10] MEDS: GABAPENTIN 300 MG CAP PO SCH (22:04)
[2023-05-11 01:49] VITALS: BP 155/70; PULSE 76; RESP 20; TEMP 97.4; O2SAT 96
[2023-05-11 05:00] VITALS: BP 137/52; PULSE 90; RESP 18; TEMP 97.8; O2SAT 92
[2023-05-11] MEDS: LEVOTHYROXINE SODIUM 25 MCG TAB PO SCH (06:11)
[2023-05-11 06:47] LABS: Basophils # (auto) 0.1 10 ^3/uL (0-0.2); Eosinophils # (auto) 0.5 10 ^3/uL (0-0.8); Hemoglobin 10.7 g/dL (12.2-16.2); Mean Corpuscular Hemoglobin 26.2 pg (28.0-32.0); Monocytes # (auto) 0.9 10 ^3/uL (0-1.3); Monocytes % (auto) 4.3 % (0.0-12.0); Neutrophils # (auto) 18.7 10 ^3/uL (1.6-8.6); White Blood Cell 21.3 10^3/uL (4.4-10.8)
[2023-05-11 06:49] LABS: Anion Gap 9 (5-15); Carbon Dioxide 21 mmol/L (20-30); Chloride 109 mmol/L (98-107); Potassium 4.4 mmol/L (3.5-5.1); Sodium 139 mmol/L (136-145)
[2023-05-11 06:50] LABS: Basophils % (auto) 0.4 % (0.0-2.0); Calcium 8.6 mg/dL (8.7-10.4); Eosinophils % (auto) 2.5 % (0.0-7.0); Hematocrit 33.6 % (36.0-46.0); Lymphocytes # (auto) 1.2 10 ^3/uL (0.4-5.4); Lymphocytes % (auto) 5.4 % (10.0-50.0); Mean Corpuscular Hgb Conc. 31.9 g/dL (32.0-36.0); Mean Corpuscular Volume 82.1 fL (80.0-100.0); Neutrophils % (auto) 87.4 % (37.0-80.0); Nucleated Red Blood Cells % 0.1 %; Red Blood Cells 4.09 10^6/uL (4.0-5.20)
[2023-05-11 06:56] LABS: BUN/Creatinine Ratio 14.5 (10.0-20.0); Blood Urea Nitrogen 24 mg/dL (9-23); Glucose 84 mg/dL (74-106)
[2023-05-11 07:02] VITALS: PULSE 72; RESP 14; O2SAT 95
[2023-05-11 07:10] VITALS: PULSE 100; RESP 14; O2SAT 99
[2023-05-11 08:00] VITALS: O2SAT 93
[2023-05-11 08:56] VITALS: BP 121/47; PULSE 85; RESP 18; TEMP 98.1; O2SAT 91
[2023-05-11] MEDS ORDERED: levoFLOXacin 250 MG TAB PO SCH (10:00)
[2023-05-11] MEDS ORDERED: amLODIPine BESYLATE 5 MG TAB PO SCH (10:00)
[2023-05-11] MEDS ORDERED: POTASSIUM CHLORIDE 8 MEQ TAB PO SCH (10:00)
[2023-05-11] MEDS ORDERED: ENOXAPARIN SOD 80 MG/0.8ML SYRINGE SC SCH (10:00)
[2023-05-11] MEDS ORDERED: BUMETANIDE 1 MG TAB PO SCH (10:00)
== END 2023-05-11 08:30 | DRG 557 ==
LOC: ER 15:12 → EDSEX 15:12 → EDBD 15:12 → EDUNIT# 15:12 → TELE 05-09 06:42 → TELE-CENTR 05-09 23:05
PROVIDERS: ADMIT Internal Medicine; ATTEND Internal Medicine
DX: M62.82 Rhabdomyolysis (principal); I21.A1 Myocardial infarction type 2; I10 Essential (primary) hypertension; R62.7 Adult failure to thrive; J44.9 Chronic obstructive pulmonary disease, unspecified; E11.9 Type 2 diabetes mellitus without complications; E03.9 Hypothyroidism, unspecified; E11.42 Type 2 diabetes mellitus with diabetic polyneuropathy; E66.01 Morbid (severe) obesity due to excess calories; I35.0 Nonrheumatic aortic (valve) stenosis; Z68.31 Body mass index [BMI] 31.0-31.9, adult; Z86.73 Personal history of transient ischemic attack (TIA), and cerebral infarction without residual deficits; Z91.81 History of falling; Z88.0 Allergy status to penicillin; Z88.5 Allergy status to narcotic agent; Z88.2 Allergy status to sulfonamides; Z88.8 Allergy status to other drugs, medicaments and biological substances; Z79.899 Other long term (current) drug therapy; Z79.82 Long term (current) use of aspirin; Z82.49 Family history of ischemic heart disease and other diseases of the circulatory system; Z90.710 Acquired absence of both cervix and uterus
CPT/HCPCS: 36415; 70450; 71045; 71275; 72125; 80048; 80053; 80061; 81001; 82550; 82962; 83036; 83605; 83690; 83880; 84443; 84484; 85007; 85025; 85027; 85379; 87040; 87086; 93005; 93306; 93886; 93970; 94640; 97163; G0378; J1815; J1956; Q0162